=== PATIENT | female | born 1970 | race Caucasian/White ===

== ENCOUNTER 2021-01-09 19:53 | Emergency (ER) | payer OTHER, MEDICAID ==
[~2021-01-09] VITALS: Ht 172.7 cm; Wt 63.5 kg
[2021-01-09 20:10] VITALS: BP_SYST 125; BP_SYST 128; BP_DIAS 78; BP_DIAS 82
[2021-01-09] MEDS ORDERED: PRED20TA5 PO (21:11)
[2021-01-09] MEDS ORDERED: IBUP-2213 PO (21:11)
[2021-01-09 21:35] VITALS: BP 128/82
== END 2021-01-09 21:35 | disposition home or self-care (01) ==
LOC: MED 19:53
DX: U07.1 COVID-19 (principal); E11.9 Type 2 diabetes mellitus without complications; I10 Essential (primary) hypertension
CPT/HCPCS: 99283; U0003